=== PATIENT | female | born 1970 | race Two or more races ===

== ENCOUNTER 2024-02-23 10:35 | Day surgery (SDC) | payer MEDICAID, SELFPAY ==
--- NOTE | 2024-02-22 10:29 | EKG_ITS ---
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
[2024-02-22 10:35] VITALS: BMI 29.8
[2024-02-22 11:02] LABS: Basophils % (Auto) 0 % (0-2.5); Eosinophils # (Auto) 0.1 Thou/mm3 (0.0-0.5); Eosinophils % (Auto) 2 % (0-10); Hematocrit 40.3 % (36.0-46.0); Hemoglobin 13.3 g/dL (12.0-16.0); Immature Granulocytes % (Auto) 0 % (0-0); Immature Granulocytes Auto 0.02 Thou/mm3 (0.00-0.00); Lymphocytes # (Auto) 1.9 Thou/mm3 (1.0-4.8); Lymphocytes % (Auto) 33 % (10-50); Mean Corpuscular Hemoglobin 27.4 pg (25.0-35.0); Mean Corpuscular Volume 83 fL (80-100); Monocytes # (Auto) 0.5 Thou/mm3 (0.0-0.8); Monocytes % (Auto) 9 % (0-12); Neutrophils # (Auto) 3.3 Thou/mm3 (1.8-7.7); Neutrophils % (Auto) 57 % (37-80); Nucleated Red Blood Cell % 0 /100 WBC (0); Platelet Count 233 Thou/mm3 (140-440); RDW Standard Deviation 39.9 fL (36.4-46.3); Red Blood Count 4.86 Miln/mm3 (4.00-5.20); White Blood Count 5.9 Thou/mm3 (3.6-11.0)
[2024-02-22 11:16] LABS: Anion Gap 7 (7-16); BUN/Creatinine Ratio 17 Ratio (12-20); Blood Urea Nitrogen 12 mg/dL (9-23); Calcium 10.1 mg/dL (8.3-10.6); Carbon Dioxide 29.2 mMol/L (20.0-31.0); Chloride 104 mMol/L (98-107); Creatinine (Component) 0.7 mg/dL (0.6-1.3); Estimated Creatinine Clearance 97.9 mL/min (>60); Glucose 113 mg/dL (74-106); Osmolality,Calculated 280 (275-295); Potassium 4.1 mMol/L (3.4-5.1); Sodium 140 mMol/L (136-145); eGFR > 60 See Note
[2024-02-22 11:23] LABS: Partial Thromboplastin Time 26.8 Seconds (22.0-36.0); Prothrombin Time 10.9 Seconds (9.0-12.2)
--- NOTE | 2024-02-22 14:10 | ESHP_ITS ---
RE: PETER BISHOP : 1970 DATE OF ADMISSION: 02/23/2024 HISTORY OF PRESENT ILLNESS: The patient came to my office on 02/22/2024 for detailed preop history and physical examination. HISTORY OF PRESENTING COMPLAINT: The patient presented to me earlier on quite a few occasions with history of pain, swelling, clicking, and locking of the right knee joint. This is going on for many years, but last few years is very painful. The patient graded intensity of pain to be 8-9/10. There is no history of giving way. It interferes with quality of life and activities of daily living. MRI scan confirmed torn meniscus with degenerative joint disease changes and synovitis with increased joint fluid. PAST MEDICAL HISTORY: No history of diabetes mellitus, high blood pressure, asthma, seizure, chest pain, myocardial infraction or bleeding disorder. PAST SURGICAL HISTORY: None. FAMILY HISTORY AND SOCIAL HISTORY: The patient denies smoking, drinking and is not working. PHYSICAL EXAMINATION: GENERAL: Normal built lady. VITAL SIGNS: Pulse 88 per minute. Blood pressure 120/76. NECK: Soft, supple. No masses felt. Trachea is centrally placed. CARDIOVASCULAR SYSTEM: First and second heart sound normal. No murmur heard. LUNGS: Bilateral vesicular breath sounds. CHEST: Clear. ABDOMEN: Soft. No masses felt. Bowel sounds present. BREASTS: Exam is not indicated in this case. RECTAL: The patient is advised to see the family physician for rectal examination. EXTREMITIES: Right knee examination revealed 1+ swelling and 2+ tenderness. Active range of motion 0 to 115 degrees of flexion. Patellofemoral crepitus is present. Rikki's test is positive. Drawer tests and Thuan's tests are negative. The patient walks with a limp. DIAGNOSTIC DATA: MRI scan confirmed torn meniscus with arthritic changes, increased joint fluid with synovitis. ASSESSMENT AND PLAN: Since the patient is symptomatic, therefore, right knee arthroscopy was discussed and advised. Risks with anesthesia was explained and that includes, but not limited to reaction to anesthetic agents, cardiac arrest and rarely it might be fatal. Risks with operation includes infection and if that happens, the patient may need further surgical procedure. Other risks include delayed healing, wound dehiscence, etc. No guarantee is given regarding the outcome of the procedure and/or relief of symptoms. The patient is cleared for surgical procedure by primary care physician. Surgery is booked for 02/23/2024. All appropriate lab work is done. DT: ::28 TT: 14:08:00 Ref: [id number] - TID: [id number]
[2024-02-23] VITALS (9 sets, daily range): BP systolic 156–173; BP diastolic 83–96; PULSE 84–121; RESP 12–19; TEMP 36.2–36.7; O2SAT 95–100; BMI 29.5
[2024-02-23] MEDS: RINGERS LACTATED 1000 ML 1,000 ML 20 ML IV (11:03)
--- NOTE | 2024-02-23 13:43 | SUR.PHASEI ---
1343: Pt. AAOx4, vitals stable, breathing unlabored, no complaint of pain or nausea, dressing to right knee CDI, no active bleed noted, bilateral dorsalis pedis pulses strong and regular, cap refill to bilateral feet less than 3 seconds, report received from MD Segovia and Pérez KELLOGG.
--- NOTE | 2024-02-23 13:49 | ESOP_ITS ---
Date of Procedure 02/23/24 Pre Op Diagnosis 1. Torn medial meniscus right knee joint 2 torn lateral meniscus 3 degenerative joint disease changes. 4 synovitis with medial plica Post Op Diagnosis Same and foreign body Procedure 1. Partial medial meniscectomy 2. Partial lateral meniscectomy 3 chondroplasty 4 partial synovectomy including excision plica 5. Removal of the foreign body Findings Patient has significant synovitis tissue inflammation in the suprapatellar pouch area. Medial plica was present. 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 Anterior femoral condyle showed grade IV chondromalacia 2. There is significant areas were denuded of cartilage. Medial shelf was present. The medial tibial plateau showed grade IV chondromalacia. Medial medial meniscus showed complex tear lateral tibial plateau showed grade IV chondromalacia with all of the surface was debrided of cartilage. Lateral femoral condyle showed the same thing. Procedure Description The patient was given general endotracheal anesthesia. Once satisfactory anesthesia was achieved, tourniquet was placed on right upper thigh. Following that the part was thoroughly prepped and draped. After using Esmarch the tourniquet pressure was raised to 350 mmHg. A skin incision was made proximal to lateral tibial plateau and arthroscope was introduced in the usual fashion. Another a skin incision was made in suprapatellar pouch area and outlet was established. The findings were noted as below. In suprapatellar pouch area significant synovial tissue inflammation was present. Medial plica was present as well. The undersurface of patella showed grade 4 chondromalacia. The anterior femoral condyle showed grade 4 chondromalacia. Soft tissue impingement was present. The patellar tracking was checked and found to be good. The medial compartment showed grade 4 chondromalacia for medial tibial plateau and medial femoral condyle. Significant areas were denuded of cartilage. The medial meniscus showed degeneration and complex tear of the posterior horn and body. Another skin incision was made proximal to medial tibial plateau and a probe was introduced and findings were confirmed. The anterior cruciate ligament was significantly torn. The the knee was lax The lateral compartment showed grade IV chondromalacia lateral femoral condyle and tibial plateau. Almost all areas of lateral tibial plateau and lateral femoral condyle was denuded of cartilage. It was like [id number] appearance. Lateral meniscus showed degeneration of the body and anterior horn. A shaver was introduced and shaving of the anterior horn of medial meniscus was performed. Soft tissue impingement was shaved off. Chondroplasty of the medial femoral condyle and medial tibial plateau was performed. The shaving of the body and anterior horn of lateral meniscus was done. The chondroplasty of the patella and and anterior femoral condyle was performed. The soft tissue impingement was shaved off. A partial synovectomy including excision of plica was performed. Copious amount of irrigation was used to irrigate the knee joint. All the debris were removed. The foreign body was removed with a grasper 3-0 Prolene was used to close the wound. About 20 mL of quarter percent Marcaine along with 10 mg of Duramorph was inject ed. Patient tolerated procedure well. Estimated blood loss was about 5 mL. Prognosis in this case is very much guarded. Because of significant chondromalacia patient may continue having short and or long-term pain. If pain is severe patient may be a candidate for knee replacement and patient is fully aware of that. Patient was taken to the recovery room in good condition. Anesthesia GETA and other Pathology / specimen None Estimated Blood Loss 1 Surgeon Terell Staton MD Surgical Staff Operation Date: 02/23/24 13:30 Case Staff Anesthesiologist: Tony Segovia
[2024-02-23] MEDS: ONDANSETRON INJ 2 MG/ML INJ 2 ML 4 MG IV (14:48)
--- NOTE | 2024-02-23 15:00 | SUR.PHASEII ---
1500: Pt. AAOx4, vitals stable, breathing unlabored, no complaint of pain or nausea, dressing to right knee CDI, no active bleed noted, bilateral dorsalis pedis pulses strong and regular, cap refill to bilateral feet less than 3 seconds, pt. ambulated to wheelchair with steady gait and no assist, no complications. Gave discharge instructions to the pt. and her ride using access assoc estrellita, both verbalized understanding and had no further questions. Pt. left with all personal belongings.
--- NOTE | 2024-02-26 14:49 | PD.ANESPROG ---
Documentation for date of: 02/26/24 POST ANESTHESIA NOTE: Patient had general LMA anesthesia for R knee scope on 02/23/24. I just called and spoke with her on the phone via regional commercial sales manager and she reported having PONV on the day of surgery only and otherwise denied any problems from anesthesia. Tony Segovia MD Anesthesia Progress Note Progress Note Most recent Vital Signs: Last Vital Signs Temp 97.3 F 02/23/24 14:58 Pulse 84 02/23/24 14:58 Resp 15 02/23/24 14:58 BP 164/87 H 02/23/24 14:58 Pulse Ox 95 02/23/24 14:58 O2 Flow Rate 4 02/23/24 13:58
== END 2024-02-23 15:00 | disposition home or self-care (01) ==
PROVIDERS: Referring Provider Orthopaedic Surgery; Visit Provider Orthopaedic Surgery
PROC: (CPT 29870; principal; 2024-02-23 13:30)
DX: S83.241A Other tear of medial meniscus, current injury, right knee, initial encounter (principal); M65.90 Unspecified synovitis and tenosynovitis, unspecified site; M19.90 Unspecified osteoarthritis, unspecified site; S83.281A Other tear of lateral meniscus, current injury, right knee, initial encounter; Z01.810 Encounter for preprocedural cardiovascular examination
CPT/HCPCS: 29880; 29875; 36415; 80048; 85025; 85610; 85730; 93005; A4217; A4649; J0131; J1100; J2274; J2405; J2704; J2765; J3010; J3490; J7120; J0665; J2270

== ENCOUNTER 2024-06-21 15:53 | Observation (INO) | payer MEDICAID, SELFPAY ==
[2024-06-20 06:50] VITALS: BMI 31.8
[2024-06-20 07:52] LABS: Basophils % (Auto) 0 % (0-2.5); Eosinophils # (Auto) 0.1 Thou/mm3 (0.0-0.5); Eosinophils % (Auto) 1 % (0-10); Hematocrit 43.4 % (36.0-46.0); Immature Granulocytes % (Auto) 0 % (0-0); Immature Granulocytes Auto 0.02 Thou/mm3 (0.00-0.00); Lymphocytes # (Auto) 2.4 Thou/mm3 (1.0-4.8); Lymphocytes % (Auto) 34 % (10-50); Mean Corpuscular HGB Conc 32.3 g/dl (31.0-37.0); Mean Corpuscular Hemoglobin 27.3 pg (25.0-35.0); Mean Corpuscular Volume 85 fL (80-100); Monocytes # (Auto) 0.5 Thou/mm3 (0.0-0.8); Monocytes % (Auto) 7 % (0-12); Neutrophils # (Auto) 4.1 Thou/mm3 (1.8-7.7); Neutrophils % (Auto) 58 % (37-80); Nucleated Red Blood Cell % 0 /100 WBC (0); Platelet Count 262 Thou/mm3 (140-440); RDW Standard Deviation 44.1 fL (36.4-46.3); Red Blood Count 5.13 Miln/mm3 (4.00-5.20)
[2024-06-20 08:09] LABS: Partial Thromboplastin Time 25.1 Seconds (22.0-36.0); Prothrombin Time 10.5 Seconds (9.0-12.2)
[2024-06-20 08:11] LABS: Alanine Aminotransferase 20 U/L (10-49); Albumin, Serum 4.5 gm/dL (3.5-5.0); Albumin/Globulin Ratio 1.7 (1.2-2.2); Alkaline Phosphatase 53 U/L (46-116); Anion Gap 8 (7-16); Aspartate Amino Transferase 16 U/L (0-34); BUN/Creatinine Ratio 21 Ratio (12-20); Bilirubin,Total 0.6 mg/dL (0.3-1.2); Blood Urea Nitrogen 17 mg/dL (9-23); Calcium 9.6 mg/dL (8.3-10.6); Calcium (Corrected) 9.6 mg/dL (8.5-10.1); Carbon Dioxide 28.1 mMol/L (20.0-31.0); Chloride 107 mMol/L (98-107); Creatinine (Component) 0.8 mg/dL (0.6-1.3); Estimated Creatinine Clearance 85.3 mL/min (>60); Globulin 2.7 gm/dL (2.3-3.5); Glucose 106 mg/dL (74-106); Osmolality,Calculated 286 (275-295); Potassium 3.9 mMol/L (3.4-5.1); Sodium 143 mMol/L (136-145); Total Protein 7.2 gm/dL (5.7-8.2); eGFR > 60 See Note
--- NOTE | 2024-06-20 16:15 | ESHP_ITS ---
RE: PETER BISHOP : 1970 DATE OF ADMISSION: 06/20/2024 The patient came to my office on 06/20/2024 for detailed preop history and physical examination. HISTORY OF PRESENT COMPLAINT: The patient presented to me with a history of pain in the right knee joint. Pain is quite bad. Intensity of pain is graded 8-9/10. Quality of life and activities of daily living is affected. The patient is unable to sleep. The patient wants something to be done about it. The patient also underwent right knee arthroscopy in 02/2024. It revealed significant chondromalacia. Basically, lateral compartment showed grade 4 chondromalacia and almost all the areas of lateral femoral condyle and tibial plateau were denuded of cartilage. X-ray also confirms significant osteoarthritic changes. PAST MEDICAL HISTORY: No history of diabetes mellitus, high blood pressure, asthma, seizure, chest pain, myocardial infarction, or bleeding disorder. PAST SURGICAL HISTORY: Cholecystectomy and right knee arthroscopy. DRUG HISTORY: The patient is on 1. Atorvastatin. 2. Methimazole. 3. ALLERGIES: NONE. FAMILY HISTORY AND SOCIAL HISTORY: Noncontributory in this case. PHYSICAL EXAMINATION: GENERAL: Normal-built person. VITAL SIGNS: Pulse is 88 per minute. Blood pressure is 142/80 mmHg. NECK: Soft, supple. No mass felt. Trachea is centrally placed. CARDIOVASCULAR SYSTEM: First and second heart sounds are normal. No murmur heard. RESPIRATORY SYSTEM: Bilateral vascular breath sounds. CHEST: Clear. ABDOMEN: Soft. No mass felt. Bowel sounds present. BREASTS: Not indicated in this case. EXTREMITIES: Right knee examination revealed mild swelling. There is 2+ tenderness. Active range of motion is 0- 120 degrees of flexion. Patellofemoral crepitus is present. Varus deformity is present. DIAGNOSTIC DATA: X-ray confirmed significant osteoarthritic changes. Since the patient has significant osteoarthritic changes and arthroscopic findings are consistent with grade 4 chondromalacia, therefore, right total knee replacement was discussed and advised. ASSESSMENT AND PLAN: Risk with anesthesia was explained and that includes, but not limited to reaction to anesthetic agents, cardiac arrest, or rarely it might be fatal. Risks with operations include infection and if that happens, the patient may need further surgical procedure. Other risks include delayed healing wound defects, etc. No guarantee is given regarding outcome of the procedure and/or relief of symptoms. Sometimes, rare complications including possible damage to nerve and vessels may happen and if that happens, we have to take care of that. Sometimes, there is a stress fracture proximal and/or distal to the implant and if that happens, the patient may need further surgical procedure. Possibility of blood transfusion was discussed. Risks with blood transfusion discussed in detail and after discussing, the patient wanted to proceed with blood transfusion if it is needed. The patient's surgery is booked for 06/21/2024. Appropriate lab work done. DT: 13:00:36 TT: 15:42:00 Ref: [id number] - TID: [id number]
[2024-06-21] VITALS (20 sets, daily range): BP systolic 120–166; BP diastolic 70–88; PULSE 80–109; RESP 12–21; TEMP 36.2–36.8; O2SAT 94–100; BMI 32.5
[2024-06-21] MEDS: RINGERS LACTATED 1000 ML 1,000 ML 20 ML IV (06:18)
--- NOTE | 2024-06-21 07:31 | SUR.PREOP ---
Patient expressed gratitude for prayer before their procedure.
--- NOTE | 2024-06-21 10:04 | XR_ITS ---
Examination: Knee, right , 3 views Technique: Knee AP, lateral, oblique 3 views Date and time of exam: June 21, 2024 1036 hours INDICATIONS: Status post knee arthroplasty today. FINDINGS: Total right knee arthroplasty. Satisfactory alignment. Significant osteopenia. No fracture IMPRESSION: Total right knee arthroplasty with satisfactory alignment
--- NOTE | 2024-06-21 10:05 | PD.SUROPNT ---
Date of Procedure 06/21/24 Pre Op Diagnosis Severe DJD right knee joint Post Op Diagnosis Same Procedure Right total knee replacement Henrry persona implant. Femur size 6 narrow Tibial baseplate size D Polyethylene size 10 mm medial stabilizer Patella size 26 mm Findings Patient has significant osteoarthritic changes. The articular cartilage were absent. There was [id number] appearance. Significant osteophytes were present. Genu valgus deformity was present as well Procedure Description The patient was given a general anesthesia. The nerve block was also given. Side hip 6 degrees of abduction right once satisfactory anesthesia was achieved a tourniquet was placed on right upper thigh. Intravenous antibiotics was given at the time of anesthesia. The patient was thoroughly prepped and draped. After using Esmarch the tourniquet pressure was raised to 350 mmHg. A skin incision was made 2 inches proximal to the upper pole of patella going as far down as up to the medial aspect of the tibial tuberosity. The skin was raised as a flap on the site. The bleeding vessels were electrocoagulated as and when encountered. The quadriceps tendon, medial border of the patella and the patellar tendon along the medial aspect of the tibial tuberosity was incised and reflected. The patellar tendon was reflected as much as needed to macie the patella. The soft tissue from the upper medial border of the tibia was reflected to correct her genu varum deformity. The knee joint was flexed. The anterior cruciate ligament, medial and lateral meniscus were excised. Next para drill hole was made to the inferior surface of the femur. Following that a swab was placed. A 6?? of abduction was already put into it. Following that a cutting block for the inferior cut of the femur was placed and nicely secured with the pins. The swat was removed. The inferior cut of the femur was made and after that the cutting block was removed. Following that a sizer was placed. A decision was made to use size 6 femur implant. 2 drill holes each in 3?? of external rotation were made. The sizer was removed. Size [6] cutting block was placed. Following that anterior, posterior, anterior chamfer and posterior chamfer cuts were made. The cutting block was removed. The knee joint was extended and a 10 mm trial plastic was removed and the intended level of the tibial cut was marked. The knee joint was flexed. With the help of double-pronged the tibia was displaced anteriorly. An extramedullary jig for the cutting block placement of the tibia was placed. The mechanical axis of the zig was parallel to the mechanical axis of the tibia. Following that the tibial cutting block was placed at the desired level and was secured nicely with the help of pins. Following that the tibial cut was made. In this case was posterior cruciate ligament was saved. The cutting block was removed. The spacer was placed and a decision was made to use size [10] polyethylene. The sizing of the tibial baseplate was done and the decision was made to use size [D] tibial baseplate. Following that size [6] trial femur implant was placed in lateralized position and size [D] tibial tibial baseplate along with size [10] plastic was placed in knee joint was flexed and extended quite a few times and tibial baseplate was allowed to sit wherever it wanted to. The markings were made for the tibial baseplate. 2 drill holes were made for the inferior surface of the femur trial implant. The trial implant was removed and tibial baseplate was placed again with the help of pins. The collar was placed and superior hole was drilled. Following that a fin cut was made. The patella was reamed with [26] mm diameter reamer. [12] mm thickness was left. A collar was placed and 3 drill holes were made. All the trial implant was placed and patellar tracking was checked and found to be good. Lateral release was done at this point. The wound was irrigated with antibiotic solution every 4-5 minutes. Now the power lavage antibiotic solution was used. The knee joint was flexed. The bone were made dry. The cement was mixed. With the help of cement the tibial baseplate was mounted. The excess cement was removed. The femur implant was placed and trial plastic was placed and knee joint was extended. Patella was also mounted with the help of cementing. Excess cement was removed. Osteophytes from the patella was removed at this time. Once the cement was set the tourniquet pressure was released. The bleeding vessels were electrocoagulated. The trial plastic was removed and 10 mm medial stabilizer ultrahigh molecular polyethylene was placed Closure The quadriceps tendon was closed with 1 strata fix in continuous fashion. The subcu tissues were closed with the help of 2 oh strata fix. Subcu tissue was placed. Prineo tape was applied. The wound was cleaned with hydrogen proximal solution and a sterile dressing was applied. Patient tolerated procedure very well. Estimated blood loss [50] mL. Prognosis in this case is good. This was taken to the recovery room in good condition. Anesthesia GETA and other Pathology / specimen None Estimated Blood Loss 50 Surgeon Terell Staton MD Surgical Staff Operation Date: 06/21/24 07:30 Case Staff HISTOLOGY TECHNICIAN: Tomy Mckeon RNrim roller operator: Reny Fernando
[2024-06-21] MEDS: fentaNYL CIT INJ 50 mCg/ML AMP 2ML IV (11:02)
[2024-06-21] MEDS: ACETAMINOPHEN IVPB 1,000 MG/100 ML VIAL 250 MG IV (11:17)
--- NOTE | 2024-06-21 11:18 | SUR.PHASEI ---
1024: Pt received in [facility] via hospital bed. Report from Donald KELLOGG and Carlos Thorne CRNA, CRNA. Pt groggy. Easily aroused with eye opening. Resp even, unlabored. VS stable and within pre-procedure baseline. Anesthesia aware. Dressing to right knee dry, clean, intact. Bilateral pedal pulses strong, regular. Pt has sensation to right foot but no movement. No c/o pain. 1045L Radiology here to take ordered x-rays. Pt tolerated procedure with no complaints. Resp even, unlabored. VS stable.
--- NOTE | 2024-06-21 11:25 | SUR.PHASEII ---
1102: Pt has c/o pain to right knee. Rates pain level 10/10. Received new orders for pain control. VS stable. Resp even, unlabored. Pain medication given per order. 1110: Pt continues to have c/o pain to right knee. Rates pain level 7/10. VS stable. Resp even, unlabored. Pain medication given by anesthesialogist. 1117: Pt continues to have c/o pain to right knee. Acetaminophen IV started and is infusing at this time.
--- NOTE | 2024-06-21 11:57 | SUR.PHASEII ---
1140: Pt resting with no further c/o pain. VS stable. Resp even, unlabored. Dressing to right knee remains dry, clean, intact. Has movement of right foot.
--- NOTE | 2024-06-21 12:07 | SUR.PHASEII ---
Received report on pt. s/p surgery from Sharon KELLOGG. Pt. is stable, VSS, no c/o pain or nausea at this time, dressing to right leg CDI.
--- NOTE | 2024-06-21 12:20 | SUR.PHASEII ---
Pt. has c/o pain 12/13. Called Carlos RODRIGUEZ and made aware of pt.'s pain level. Carlos RODRIGUEZ stated will do a nerve block.
--- NOTE | 2024-06-21 12:25 | SUR.PHASEII ---
Carlos RODRIGUEZ at bedside, performing nerve block.
--- NOTE | 2024-06-21 13:58 | SUR.PHASEII ---
1250: Assumed care. Pr resting. States she has very little pain and is comfortable. VS stable. Dressing dry, clean, intact. Pt offered 7up and jello which she comsumed with no difficulty swallowing and no n/v. at bedside. 1330: Pt continues to rest with no complaints voiced. Niece at bedside now.
--- NOTE | 2024-06-21 15:19 | SUR.PHASEII ---
1400: Late tray ordered for pt. Consumed 33% of meal. 1430: Pt resting with no complaints voiced. VS stable. Dressing remains dry, clean, intact. Bilateral pedal pulses strong, regular. Has movement and sensation to right foot. Niece at bedside. 1512: Received room assignment. Report to 3rd floor. Pt transferred to 382 in stable condition.
[2024-06-21] MEDS: ceFAZolin/D5W 1 GM IVPB 1 GM/50 ML BAG IV ×2 (15:51→23:39)
[2024-06-21] MEDS: MORPHINE SULF INJ 10 MG/ML VIAL 4 MG IV ×2 (16:24→23:52)
[2024-06-22] VITALS: BP 128/77; PULSE 74; RESP 17; TEMP 36.3; O2SAT 95
[2024-06-22 04:00] VITALS: BP 123/69; PULSE 68; RESP 18; TEMP 36.2; O2SAT 95
[2024-06-22 05:28] LABS: Basophils % (Auto) 0 % (0-2.5); Eosinophils % (Auto) 0 % (0-10); Hematocrit 37.4 % (36.0-46.0); Hemoglobin 12.4 g/dL (12.0-16.0); Immature Granulocytes % (Auto) 0 % (0-0); Immature Granulocytes Auto 0.07 Thou/mm3 (0.00-0.00); Lymphocytes # (Auto) 1.1 Thou/mm3 (1.0-4.8); Lymphocytes % (Auto) 7 % (10-50); Mean Corpuscular HGB Conc 33.2 g/dl (31.0-37.0); Mean Corpuscular Hemoglobin 28.1 pg (25.0-35.0); Mean Corpuscular Volume 85 fL (80-100); Monocytes # (Auto) 1.3 Thou/mm3 (0.0-0.8); Monocytes % (Auto) 8 % (0-12); Neutrophils # (Auto) 13.1 Thou/mm3 (1.8-7.7); Neutrophils % (Auto) 84 % (37-80); Nucleated Red Blood Cell % 0 /100 WBC (0); Platelet Count 223 Thou/mm3 (140-440); RDW Standard Deviation 43.9 fL (36.4-46.3); Red Blood Count 4.41 Miln/mm3 (4.00-5.20); White Blood Count 15.6 Thou/mm3 (3.6-11.0)
[2024-06-22 08:00] VITALS: BP 127/68; PULSE 72; RESP 16; TEMP 36.3; O2SAT 96
[2024-06-22] MEDS: MORPHINE SULF INJ 10 MG/ML VIAL 4 MG IV ×4 (09:05→23:50)
--- NOTE | 2024-06-22 11:39 | PC.NURSE ---
Dr. Oviedo called and gave me orders to discharge patient after PT assessment. I was just made aware there is not PT available today and PT evaluation will be done tomorrow. Patient will stay another night and be discharged tomorrow. I was on break Ana Rosa KELLOGG called Dr. Oviedo and he is aware of PT being available till tomorrow. Will continue to monitor patient.
[2024-06-22 12:00] VITALS: BP 115/65; PULSE 80; RESP 15; TEMP 36.4; O2SAT 95
[2024-06-22 16:00] VITALS: BP 142/61; PULSE 83; RESP 17; TEMP 37; O2SAT 94
[2024-06-22 20:00] VITALS: BP 133/79; PULSE 87; RESP 18; TEMP 36.4; O2SAT 95
[2024-06-23] VITALS: BP 148/85; PULSE 92; RESP 15; TEMP 36.4; O2SAT 96
[2024-06-23 04:00] VITALS: BP 135/75; PULSE 81; RESP 18; TEMP 36.4; O2SAT 94
[2024-06-23] MEDS: MORPHINE SULF INJ 10 MG/ML VIAL 4 MG IV ×3 (04:53→13:17)
[2024-06-23 08:00] VITALS: BP 129/66; PULSE 95; RESP 18; TEMP 36.4; O2SAT 94
--- NOTE | 2024-06-23 09:22 | PC.NURSE ---
Dr Staton says to discharge pt after she works with PT and that she already has everything she needs-asa,norco,walker
--- NOTE | 2024-06-23 10:45 | CHAP ---
Patient was prayed for by the Spiritual Care Volunteer. (Volunteer was in the hospital from 09:13-10:45).
[2024-06-23 12:00] VITALS: BP 146/91; PULSE 98; RESP 17; TEMP 36.7; O2SAT 95
--- NOTE | 2024-06-23 14:12 | PC.NURSE ---
pt discharged using [facility], address and phone number of Dr. Staton provided and pt informed to call for an appt
--- NOTE | 2024-06-23 16:10 | PC.SS ---
SS met with patient at bedside. Patient's stated her spouse Cas Wolf [phone] is her surrogate medical decision maker. Patient shared her home address is [address] [place] [id number]. Patient stated she is independent with ADLs and ambulation. Pharmacy: [facility]. PCP: Jaki Peguero. Discharge plan: home, spouse Cas to transport. Next of kin: Spouse Cas Wolf [phone].
== END 2024-06-23 13:43 | disposition home or self-care (01) ==
LOC: S3SX 06-23 12:51 → S2EX 06-25 06:41 → S3SX 06-25 06:41
PROVIDERS: Anesthesiology; Admitting Provider Orthopaedic Surgery; PCP Nurse Practitioner Family; Referring Provider Orthopaedic Surgery; Visit Provider Orthopaedic Surgery
PROC: (CPT 27447; principal; 2024-06-21 07:30)
DX: M17.11 Unilateral primary osteoarthritis, right knee (principal); M25.761 Osteophyte, right knee; M21.061 Valgus deformity, not elsewhere classified, right knee
CPT/HCPCS: 27447; 36415; 73562; 80053; 85025; 85610; 85730; 86850; 86900; 86901; 86923; 87081; 96365; 97161; A4217; C1713; C1776; G0378; J0131; J0689; J1580; J1885; J2250; J2270; J2405; J2704; J2795; J3010; J3490; J7030; J7120

== ENCOUNTER → 2025-02-04 | Outpatient (CLI) | payer MEDICAID, SELFPAY ==
--- NOTE | 2025-02-04 16:00 | XR_ITS ---
Examination: Screening digital mammography, bilateral Computer aided detection 3-D breast Tomosynthesis, bilateral Date and time of exam: February 04, 2025, 1633 hours, compared to September 17, 2015 Indication: Screening Technique: Nonmagnified MLO, CC views of the breasts to been obtained, reconstructed from 3-D Tomosynthesis images. R2 computer aided detection program utilized for evaluation of suspicious masses and/or abnormal calcifications. 3-D Tomosynthesis images obtained. Findings: The breasts are heterogeneously dense, which may obscure small masses Benign calcifications No interval suspicious masses Impression: BI-RADS category II: Benign Findings. Recommend 1 year follow-up mammogram.
== END | disposition home or self-care (01) ==
PROVIDERS: PCP Nurse Practitioner Family; Referring Provider Nurse Practitioner Family; Visit Provider Nurse Practitioner Family
DX: Z12.31 Encounter for screening mammogram for malignant neoplasm of breast (principal); R92.323 Mammographic fibroglandular density, bilateral breasts; R92.1 Mammographic calcification found on diagnostic imaging of breast
CPT/HCPCS: 77063; 77067

== ENCOUNTER → 2025-03-04 | Outpatient (CLI) | payer MEDICAID, SELFPAY ==
--- NOTE | 2025-03-04 15:00 | XR_ITS ---
EXAMINATION: Thyroid sonography complete TECHNIQUE: Grayscale sonographic images thyroid lobes Date and time: March 04, 2025, 1505 hours INDICATIONS: Nuclear medicine thyroid uptake scan February 06, 2018 hyperfunctioning nodule mid left thyroid lobe FINDINGS: Right thyroid 4.9 cm Mid pole cyst 3 x 3 mm Lower pole nodule 7 x 8 mm Left thyroid 5.8 cm Mid pole nodule 7 x 6 mm Lower pole nodule 2.4 x 1.9 x 1.9 cm IMPRESSION: Thyroid nodules as above Recommend ultrasound-guided fine-needle aspiration of the large lower pole left thyroid nodule
== END | disposition home or self-care (01) ==
PROVIDERS: PCP Student in an Organized Health Care Education/Training Program; Referring Provider Student in an Organized Health Care Education/Training Program; Visit Provider Student in an Organized Health Care Education/Training Program
DX: E04.2 Nontoxic multinodular goiter (principal)
CPT/HCPCS: 76536